=== PATIENT | female | born 1950 ===

== ENCOUNTER 2017-06-29 10:37 | Emergency (ER) | payer MEDICARE, OTHER ==
[2017-06-29 11:00] VITALS: RESP 18
[2017-06-29] MEDS ORDERED: Lidocaine 5% Patch TD STA (11:26)
[2017-06-29] MEDS ORDERED: Lidocaine 5% Patch TD ONE (11:35)
--- NOTE | 2017-06-29 11:46 | C.PDOC ---
History Of Present Illness Patient is a 66 y/o female, with history of chronic back pain, presents to the ED for evaluation of sharp lower back pain for the last 2 days. Patient states she had back fusion surgery on 07/31/16, and has been having pain since then. States she had physical therapy for her back which aggravated her pain. Notes being seen by orthopedist Dr. Simmons, and was told she has "bad right hip joint". Pt has been seen multiple times with same complaints at [place] [facility] [place] [facility]. States she takes Percocet 10mg three times a day without any improvement. Patient uses a walker. Otherwise, denies any fall, injury, urinary symptoms, incontinence, nausea, vomiting, or fever. Time Seen by Provider: 06/29/17 11:14 Chief Complaint (Nursing): Back Pain History Per: Patient History/Exam Limitations: no limitations Onset/Duration Of Symptoms: Days (2) Current Symptoms Are (Timing): Still Present Quality Of Discomfort: Sharp, Stabbing, "Pain" Severity: Severe Previous Symptoms: Back Pain, Chronic Pain, Prior Surgery. denies: Neck Pain, Prior Injury Associated Symptoms: None. denies: Incontinence, New Weakness, New Numbness Exacerbating Factor(s): Nothing Recent travel outside of the [place]: No Additional History Per: Patient Past Medical History Reviewed: Historical Data, Nursing Documentation, Vital Signs Vital Signs: Last Vital Signs Temp 98 F 06/29/17 12:39 Pulse 78 06/29/17 12:39 Resp 18 06/29/17 12:39 BP 106/71 06/29/17 12:39 Pulse Ox 98 06/29/17 12:39 - Medical History PMH: Hypercholesterolemia Family History: States: Unknown Family Hx - Social History Hx Alcohol Use: No Hx Substance Use: No Review Of Systems Except As Marked, All Systems Reviewed And Found Negative. Constitutional: Negative for: Fever, Chills Gastrointestinal: Negative for: Nausea, Vomiting, Abdominal Pain Genitourinary: Negative for: Dysuria, Frequency, Incontinence, Hematuria Musculoskeletal: Positive for: Back Pain Skin: Negative for: Rash, Bruising Neurological: Negative for: Weakness, Numbness Physical Exam - Physical Exam Appears: Non-toxic, No Acute Distress Skin: Normal Color, Warm, Dry Head: Atraumatic, Normacephalic Eye(s): bilateral: Normal Inspection Neck: Normal ROM, Supple Cardiovascular: Rhythm Regular, No Murmur Respiratory: Normal Breath Sounds, No Rales, No Rhonchi, No Wheezing Back: No CVA Tenderness, No Vertebral Tenderness, Paraspinal Tenderness ( paralumbar), Other (surgical scar to lower midline back) Extremity: Bilateral: Atraumatic, Normal Color And Temperature, Normal ROM Neurological/Psych: Oriented x3, Normal Speech ED Course And Treatment O2 Sat by Pulse Oximetry: 99 (RA) Pulse Ox Interpretation: Normal Medical Decision Making Medical Decision Making: Impression: 66 y/o female, with Hx of chronic back pain, presents for evaluation of lower back pain for the last 2 days. Plan: * Lidoderm * Tylenol * Valium * Toradol IM * Reassess and disposition Progress note: On reassessment, patient is resting comfortably, with moderate improvement of back pain. Patient remains afebrile, no extremity numbness or weakness, or abdominal pain. Patient is ambulatory using walker without any difficulty. Patient was advised to follow up with physician/clinic in 1-2 days. Disposition Counseled Patient/Family Regarding: Need For Followup, Rx Given - Disposition Referrals: Jessica Ramirez MD [Medical Doctor] - Disposition: HOME/ ROUTINE Disposition Time: 12:33 Condition: IMPROVED Additional Instructions: Follow up with your primary medical doctor or clinic in 2-5 days for further evaluation. Take medications as prescribed. Return to the emergency department at any time if symptoms persist or worsen. Prescriptions: diaZEpam [Valium] 2 mg PO Q8 #14 tab Lidocaine 5% [Lidoderm] 1 ea TD Q12 #12 patch Instructions: Chronic Back Pain (ED) Forms: [facility] (K[place]akh) - POA Present On Arrival: None - Clinical Impression Clinical Impression: Low back pain - PA / RECOATER / Resident Statement MD/DO has reviewed & agrees with the documentation as recorded. - Scribe Statement The provider has reviewed the documentation as recorded by the Earlibosmin Hercules All medical record entries made by the Scribe were at my direction and personally dictated by me. I have reviewed the chart and agree that the record accurately reflects my personal performance of the history, physical exam, medical decision making, and the department course for this patient. I have also personally directed, reviewed, and agree with the discharge instructions and disposition.
[2017-06-29 12:40] VITALS: BP 106/71; PULSE 78; TEMP 98
[2017-06-29 13:17] VITALS: O2SAT 99
== END 2017-06-29 12:40 | disposition home or self-care (01) ==
LOC: C.ER 10:37
DX: M54.5 Low back pain (principal)
CPT/HCPCS: 96372; 99283; J1885